=== PATIENT | male | born 1985 | race Asian ===

== ENCOUNTER 2016-12-12 20:50 | Emergency (ER) | payer OTHER ==
[2016-12-12 22:04] VITALS: BP 115/64
--- NOTE | 2016-12-12 22:16 | RAD ---
Indication: Pain at base of fifth metatarsal following twisting injury. Comparison: None. Technique: AP, mortise, and lateral views LEFT ankle. AP, lateral, and oblique views LEFT foot. REPORT AND IMPRESSION: Normal articular alignment at the ankle and foot. Negative for fracture at the ankle or foot. Normal variant bipartite sesamoid at the medial head of the flexor hallucis brevis. Mild soft tissue swelling about the ankle and foot without significant focality.
--- NOTE | 2017-01-05 19:22 | UC ---
Aline Sepulveda Alok, scribed for Jumana Shin DO on 12/12/16 at 2306 . Lower Extremity/Ankle HPI - HPI Summary HPI Summary: 31 y/o male presents to the and c/o left ankle pain following twisting ankle at 1830 while playing squash. Pt states that he is able to ambulate with pain; ankle pain worsening with movement and pressure. While at rest pt says he feels a discomfort registering at a 3 out of 10 in severity. Pt denies any fever, chills, diaphoresis, emesis, cough, nor abd pain. Pt denies any pertinent PMHx at this time. - History of Current Complaint Chief Complaint: UCLowerExtremity Stated Complaint: ANKLE INJURY Time Seen by Provider: 12/12/16 21:34 Hx Obtained From: Patient Onset/Duration: Gradual Onset, Lasting Hours, Still Present Severity Initially: Moderate Severity Currently: Moderate Pain Intensity: 3 - at rest Pain Scale Used: 0-10 Numeric Aggravating Factor(s): Ambulation Alleviating Factor(s): Rest Able to Bear Weight: No - Allergies/Home Medications Allergies/Adverse Reactions: Allergies Allergy/AdvReac Type Severity Reaction Status Date / Time No Known Allergies Allergy Verified 12/12/16 22:04 Home Medications: Home Medications NK [No Home Medications Reported] 12/12/16 [History Confirmed 12/12/16] PMH/Surg Hx/FS Hx/Imm Hx Previously Healthy: Yes - Surgical History Surgical History: None - Family History Known Family History: Negative: Cardiac Disease, Diabetes - Social History Occupation: Employed Full-time Alcohol Use: Weekly Substance Use Type: None Smoking Status (MU): Light Every Day Tobacco Smoker Cessation Counseling: Patient Advised to Stop Review of Systems Constitutional: Negative Skin: Negative Eyes: Negative ENT: Negative Respiratory: Negative Cardiovascular: Negative Gastrointestinal: Negative Genitourinary: Negative Motor: Negative Neurovascular: Negative Musculoskeletal: Arthralgia Neurological: Negative Psychological: Negative All Other Systems Reviewed And Are Negative: Yes Physical Exam Triage Information Reviewed: Yes Appearance: Well-Appearing, No Pain Distress, Well-Nourished Vital Signs: Initial Vital Signs Temp 98.2 F 12/12/16 21:59 Pulse 64 12/12/16 21:59 Resp 20 12/12/16 21:59 BP 115/64 12/12/16 21:59 Pulse Ox 100 12/12/16 21:59 Vital Signs Reviewed: Yes Eyes: Positive: Conjunctiva Clear ENT: Positive: Hearing grossly normal Neck: Positive: Supple, Nontender Respiratory: Positive: Lungs clear, Normal breath sounds, No respiratory distress, No accessory muscle use Cardiovascular: Positive: RRR, No Murmur Musculoskeletal: Positive: Other: - tender talor dome, midfoot. no tenderness base of 5th metatarsal Neurological: Positive: Alert, Muscle Tone Normal Psychological Exam: Normal Psychological: Positive: Age Appropriate Behavior Skin Exam: Normal Skin: Positive: Other - Warm, dry, normal color Diagnostics - Radiology Ankle X-Ray Xray Interpretation: Positive (See Comments) - REPORT AND IMPRESSION: Normal articular alignment at the ankle and foot. Negative for fracture at the ankle or foot. Normal variant bipartite sesamoid at the medial head of the flexor hallucis brevis. Mild soft tissue swelling about the ankle and foot without significant focality. Radiology Interpretation Completed By: Radiologist Foot X-Ray Xray Interpretation: Positive (See Comments) - REPORT AND IMPRESSION: Normal articular alignment at the ankle and foot. Negative for fracture at the ankle or foot. Normal variant bipartite sesamoid at the medial head of the flexor hallucis brevis. Mild soft tissue swelling about the ankle and foot without significant focality. Radiology Interpretation Completed By: Radiologist Lower Extremity Course/Dx - Differential Dx/Diagnosis Differential Diagnosis/HQI/PQRI: Arthritis, Fracture (Closed), Sprain, Strain Provider Diagnoses: ankle sprain Discharge - Discharge Plan Condition: Stable Disposition: HOME Patient Education Materials: Ankle Sprain (ED), Crutch Instructions (ED), Ankle Stirrup Splint (ED), Ankle Exercises (GEN) Referrals: [facility] ENRIKE Ivy [Primary Care Provider] - (If you are not improving in 5-7 days, you should be re-evaluated for occult fracture.) Additional Instructions: YOU WOULD LIKELY BENEFIT FROM OSTEOPATHIC TREATMENT. WE RECOMMEND THAT YOU FIND AN OSTEOPATHIC PHYSICIAN IN YOUR AREA WHO FOCUSES EXCLUSIVELY ON OSTEOPATHIC MANIPULATIVE MEDICINE WITH EXPERTISE IN MYOFACIAL, LYMPHATIC, VISCERAL AND INTEROSSEOUS WORK The documentation as recorded by the Aline carroll Alok accurately reflects the service I personally performed and the decisions made by , Jumana Shin DO.
== END 2016-12-12 23:10 | disposition home or self-care (01) ==
LOC: UCEAST 20:50
DX: S93.402A Sprain of unspecified ligament of left ankle, initial encounter (principal); X50.1XXA Overexertion from prolonged static or awkward postures, initial encounter; Y93.79 Activity, other specified sports and athletics; Y92.9 Unspecified place or not applicable; F17.210 Nicotine dependence, cigarettes, uncomplicated
CPT/HCPCS: 99203; G0463